=== PATIENT | male | born 1950 | race Caucasian/White ===

== ENCOUNTER 2022-05-01 10:28 | Emergency (ER) | payer OTHER, MEDICARE ==
[~2022-05-01] VITALS: Ht 172.7 cm; Wt 79.4 kg
[2022-05-01 10:30] VITALS: BP_SYST 146
[2022-05-01] MEDS ORDERED: LIDOCAINE PATCH 5% 1 EA TP STA (15:12)
[2022-05-01] MEDS ORDERED: LIDO1ADH77 TD (15:12)
[2022-05-01 15:24] VITALS: BP_SYST 146
== END 2022-05-01 15:28 | disposition home or self-care (01) ==
LOC: SED 10:28
DX: S20.211A Contusion of right front wall of thorax, initial encounter (principal); Z79.899 Other long term (current) drug therapy; W18.39XA Other fall on same level, initial encounter; Y93.89 Activity, other specified; Y92.89 Other specified places as the place of occurrence of the external cause; Y99.8 Other external cause status
CPT/HCPCS: 71100; 99283